=== PATIENT | female | born 1990 | race Caucasian/White ===

== ENCOUNTER → 2021-03-16 | Outpatient (CLI) | payer OTHER ==
--- NOTE | 2021-03-16 09:38 | REP ---
INDICATION: NO FLUID ON U/S NEEDS TO GO BACK TO [facility]. COMPARISON: None. TECHNIQUE: Transabdominal scanning FINDINGS: Multiple ultrasonographic images of the gravid uterus shows a single living intrauterine gestation in the cephalic presentation. Doppler interrogation of the heart shows a heart rate of 147 beats per minute. The placenta is anterior and not low-lying. The cervix measures 2.8 cm in length and is closed. Doppler interrogation of the umbilical artery shows an A\B ratio of 2.54. This is within the normal range. The subjective amniotic fluid volume is decreased. The calculated amniotic fluid index is 12.6 with an expected range 8.1 to 24.8. biophysical profile score is 2 for breathing, 2 for movement, 2 for tone, and 2 for amniotic fluid volume giving a sum total of 8/8 IMPRESSION: Limited OB ultrasound as described above. <Electronically signed by Onel Sarah > 03/16/21 0935
== END ==
LOC: M RAD 09:05
PROVIDERS: ATTEND Obstetrics & Gynecology
DX: O99.213 Obesity complicating pregnancy, third trimester (principal)

== ENCOUNTER 2021-03-31 11:33 | Inpatient (IN) | payer OTHER ==
[~2021-03-31] VITALS: Ht 152.4 cm; Wt 106.8 kg
[2021-03-31] MEDS ORDERED: PRENTAB9 PO (11:42)
[2021-03-31] MEDS ORDERED: TUMS500C PO (11:42)
[2021-03-31] MEDS ORDERED: OXYTOCIN DRIP 30 UNITS in IV 1 EA IV PRN ×4 (12:00)
[2021-03-31] MEDS: LR 1,000 ML IV SCH ×2 (12:12→15:02)
[2021-03-31 12:17] LABS: HEMATOCRIT 36.4 % (36.0-47.0); HEMOGLOBIN 11.6 g/dl (12.0-15.5); MEAN CORPUSCULAR HEMOGLOBIN 24.9 pg (27.0-33.0); MEAN CORPUSCULAR HGB CONC 31.9 g/dl (32.0-36.5); MEAN CORPUSCULAR VOLUME 78.3 fl (80.0-96.0); PLATELET COUNT, AUTOMATED 282 10^3/uL (150-450); RED BLOOD COUNT 4.65 10^6/uL (4.00-5.40)
[2021-03-31] MEDS: BETAMETHASONE SOLUSPAN 6MG/ML 5ML VIAL (J0702 PER 3MG) IM SCH (12:17)
[2021-03-31 12:20] VITALS: BP 131/88
[2021-03-31 15:04] VITALS: BP 106/62
[2021-03-31 19:20] VITALS: BP 142/84
[2021-04-01] VITALS (10 sets, daily range): BP systolic 96–140; BP diastolic 50–88
[2021-04-01] MEDS: BETAMETHASONE SOLUSPAN 6MG/ML 5ML VIAL (J0702 PER 3MG) IM SCH (11:59)
[2021-04-01] MEDS: LR 1,000 ML IV SCH (13:58)
[2021-04-01] MEDS ORDERED: miSOPROStol 50MCG 1/2 TABLET SL ONE (20:05)
[2021-04-01] MEDS ORDERED: miSOPROStol 25MCG 1/4 TABLET SL SCH (23:50)
[2021-04-02] VITALS (11 sets, daily range): BP systolic 106–139; BP diastolic 55–82
[2021-04-02] MEDS ORDERED: miSOPROStol 25MCG 1/4 TABLET SL SCH
[2021-04-02] MEDS: LR 1,000 ML IV SCH (00:25)
[2021-04-02] MEDS ORDERED: BUTORPHANOL 2 MG/ML INJ (J0595) IV ONE (04:00)
[2021-04-02] MEDS ORDERED: PROMETHAZINE INJ 25 MG/ML VIAL (J2550) IV ONE (04:00)
[2021-04-02] MEDS ORDERED: OXYTOCIN 30 UNITS IN 0.9% NaCl 500ML IV BAG (J2590) As Ordered ONE (06:00)
[2021-04-02] MEDS ORDERED: ACETAMINOPHEN 500 MG TAB PO PRN (06:40)
[2021-04-02] MEDS ORDERED: IBUPROFEN 800 MG TAB PO PRN (06:40)
[2021-04-02] MEDS ORDERED: DOCUSATE SODIUM 100MG CAPSULE PO PRN (06:40)
[2021-04-02] MEDS ORDERED: METHYLERGONOVINE MALEATE 0.2 MG TAB PO PRN (06:40)
[2021-04-02] MEDS ORDERED: IBUPROFEN 600MG TAB PO PRN (06:40)
[2021-04-02] MEDS ORDERED: ACETAMINOPHEN TAB 650MG DOSE (2X325MG) PO PRN (06:40)
[2021-04-02] MEDS ORDERED: DIBUCAINE 1% OINTMENT 30GM TOP PRN (06:40)
[2021-04-02] MEDS ORDERED: OXYTOCIN DRIP 30 UNITS in IV 1 EA IV SCH ×4 (06:40)
[2021-04-02] MEDS: PRENATAL VITAMINS CHEWABLE TABLET PO SCH (10:03)
[2021-04-03 06:30] VITALS: BP 135/70
[2021-04-03] MEDS: PRENATAL VITAMINS CHEWABLE TABLET PO SCH (09:54)
[2021-04-03 18:00] VITALS: BP 120/78
[2021-04-04] MEDS ORDERED: ACET-683 PO (05:52)
[2021-04-04] MEDS ORDERED: IBUP80TA PO (05:52)
[2021-04-04] MEDS ORDERED: COLA100C5 PO (05:52)
[2021-04-04 06:19] VITALS: BP 138/78
[2021-04-04] MEDS: PRENATAL VITAMINS CHEWABLE TABLET PO SCH (08:48)
== END 2021-04-04 13:40 | disposition home or self-care (01) | DRG 807 ==
LOC: M LDI 11:33 → M OBS 04-02 09:14
PROVIDERS: ADMIT Obstetrics & Gynecology; ATTEND Obstetrics & Gynecology
PROC: 3E0P7GC Introduction of Other Therapeutic Substance into Female Reproductive, Via Natural or Artificial Opening (ICD-10-PCS; 2021-04-01)
PROC: 10E0XZZ Delivery of Products of Conception, External Approach (ICD-10-PCS; principal; 2021-04-02)
DX: O41.03X0 Oligohydramnios, third trimester, not applicable or unspecified (principal); Z37.0 Single live birth; Z3A.36 36 weeks gestation of pregnancy; O99.214 Obesity complicating childbirth; E66.01 Morbid (severe) obesity due to excess calories; O99.284 Endocrine, nutritional and metabolic diseases complicating childbirth; E06.3 Autoimmune thyroiditis; O69.1XX0 Labor and delivery complicated by cord around neck, with compression, not applicable or unspecified; O76 Abnormality in fetal heart rate and rhythm complicating labor and delivery

== ENCOUNTER → 2021-03-31 | Outpatient (CLI) | payer OTHER ==
[~2021-03-31] MED LIST: ACET-683 PO; COLA100C5 PO; IBUP80TA PO; PRENTAB9 PO; TUMS500C PO
== END ==
LOC: M RAD 09:24
PROVIDERS: ATTEND Registered Nurse
DX: Z34.82 Encounter for supervision of other normal pregnancy, second trimester (principal)